=== PATIENT | male | born 1965 | race African-American/Black ===

== ENCOUNTER 2017-09-07 09:52 | Day surgery (SDC) | payer BC, OTHER ==
[2017-09-07] MEDS ORDERED: Bupivacaine 0.5% 10 ML VIAL ONE ×2 (10:32→16:26)
[2017-09-07] MEDS ORDERED: Adacel (T-DAP) 0.5 ML VIAL ONE (10:32)
[2017-09-07] MEDS ORDERED: CEFAZOLIN/Water 2 GM/20 ML SYRINGE SLOW IVP SCH ×2 (11:15→13:15)
--- NOTE | 2017-09-07 11:46 | RAD ---
LEFT INDEX FINGER THREE VIEWS: History: Injury to distal left index finger with pain. FINDINGS: There is soft tissue disruption distally. There is evidence of subtle fracture involving the tuft of the distal phalanx without evidence of displacement. IMPRESSION: Soft tissue destruction of distal index finger on the radial side. There is associated fracture of th e tuft of the distal phalanx. No significant displaced fragment seen. POS: [facility] [place]
--- NOTE | 2017-09-07 13:18 | CON ---
DATE OF CONSULTATION: 09/07/2017 CONSULTING PHYSICIAN: Dr. Ramiro Rodrgíuez HISTORY OF PRESENT ILLNESS: We were asked by the emergency room to see patient. The patient works i n the [employer] and unfortunately had his hands to close to a piece of equipment and it took off the whole volar aspect of his distal second digit. The bone appears to be intact, but only thing left is the nail and little bit of tissue. He is resting in bed in no acute distress. He does have some th robbing pain there, but it is tolerable. The emergency room updated his tetanus shot. He had no oth er injuries with this incident. PAST MEDICAL HISTORY: Positive for borderline cholesterol issues by Dr. Lang. PAST SURGICAL HISTORY: Carpal tunnel on the left hand. ALLERGIES: None. CURRENT MEDICATIONS: None. FAMILY HISTORY: Mother has diabetes. REVIEW OF SYSTEMS: He is a healthy individual. No other complaints other than that left distal tip pain. PHYSICAL EXAMINATION: GENERAL: Well-nourished male in the emergency room resting in room 1 on the [place] in no acute distr ess. Speech clear. Affect pleasant. Answers questions appropriately. He is alert and oriented x3. HEENT: Normal exam. Face symmetric, tongue midline. NECK: Supple, trachea midline. EXTREMITIES: Upper extremities; equal normal bulk and tone bilateral upper extremities with the exce ption of the second distal tip, which is obviously partially amputated on the volar side. He still h as his nail intact. Lower extremities, moving around the room okay. ASSESSMENT: Traumatic second distal tip traumatic amputation. 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 We will get him set up for the operating room today. We will get him consented, get it washed out and complete the amputation as there is no skin left to salvage his distal tip. I will explain this to the patien t and his boss again. They did understand that it would probably have to come off as they have seen these injuries in the [employer] before. His tetanus was updated. We will get him consented for surg natalie, get some antibiotics on board prior to surgery and get him fixed up. The patient is happy with the plan and they are amenable to go forth with the surgery as it was discussed earlier. I will retu rn to the patient and see if they have any further questions.
[2017-09-07] MEDS ORDERED: Ondansetron HCl/PF 4 MG/2 ML Vial IV PRN (13:21)
[2017-09-07] MEDS ORDERED: HYDROcodone/Acetaminophen 10/325 mg Tablet PO PRN ×2 (13:21)
[2017-09-07] MEDS ORDERED: Fentanyl 100 MCG/2 ML VIAL SLOW IVP PRN (13:21)
[2017-09-07] MEDS ORDERED: RENALLY ADJUST ABX FS SCH (13:30)
[2017-09-07] MEDS ORDERED: Midazolam HCl 2 mg/2 ml Vial ONE (13:53)
[2017-09-07] MEDS ORDERED: Neomycin-Polymyxin 1 ML AMP ONE (15:39)
[2017-09-07] MEDS ORDERED: HYDROmorphone 0.5 MG/0.5 ML SYRINGE ONE ×2 (15:44→16:13)
--- NOTE | 2017-09-07 18:19 | OP ---
DATE OF PROCEDURE: 09/07/2017 OPERATION: Left index finger completion amputation. PREOPERATIVE DIAGNOSIS: Partial amputation of the left index finger at the distal interphalangeal patricia int. POSTOPERATIVE DIAGNOSIS: Partial amputation of the left index finger at the distal interphalangeal joint. COMPLICATIONS: None. ESTIMATED BLOOD LOSS: Minimal. SURGEON: LUCINA LABOY MD ANESTHESIA: General plus local. INDICATIONS: Mr. Headley is a 52-year-old male who injured his finger at work. He sustained a parti al fingertip amputation. He had exposed bone and fracture. He was indicated for completion amputati on at the level of the DIP joint to allow soft tissue closure. Risks of surgery were reviewed. He e lected to proceed. DESCRIPTION OF PROCEDURE: Mr. Headley was identified in the preoperative holding area. His correct extremity was marked. He was carried to the operating room. He was positioned supine. General anes thesia was induced. A multidisciplinary time-out was performed. The left upper extremity was preppe d and draped in sterile fashion. We began the procedure with cleansing the patient's traumatic wound. We thoroughly irrigated with co pious lavage. At this point, we performed a fish-mouth incision over the tip of the distal finger. We worked down to the bony level. We excised the distal phalanx at the joint level. We then again i rrigated with copious lavage. Finally, we closed with a 4-0 nylon suture in interrupted fashion. We obtained good bone coverage. There were no complications. We placed local anesthetic for a digital block. At this point, the patient was taken to the recovery room in good condition without complica tion.
== END 2017-09-07 18:29 | disposition home or self-care (01) ==
LOC: ERS 09:52 → SDC/OP 14:01
PROVIDERS: ATTEND Orthopaedic Surgery
PROC: 0X6P0Z3 Detachment at Left Index Finger, Low, Open Approach (ICD-10-PCS; principal; 2017-09-07)
DX: S68.621A Partial traumatic transphalangeal amputation of left index finger, initial encounter (principal); W20.8XXA Other cause of strike by thrown, projected or falling object, initial encounter; Y92.65 Oil rig as the place of occurrence of the external cause; Y99.0 Civilian activity done for income or pay; Z98.890 Other specified postprocedural states
CPT/HCPCS: 90715; J1170; J2250; J3010; J3490

== ENCOUNTER 2018-11-30 22:18 | Emergency (ER) | payer BC | END 2018-11-30 22:37 | disposition home or self-care (01) | LOC: ERS 22:18 | DX: L72.9 Follicular cyst of the skin and subcutaneous tissue, unspecified (principal) | CPT/HCPCS: 99283 ==

== ENCOUNTER 2020-09-28 16:25 | Emergency (ER) | payer BC | END 2020-09-28 18:32 | disposition home or self-care (01) | LOC: ERS 16:25 | DX: M54.41 Lumbago with sciatica, right side (principal); F17.210 Nicotine dependence, cigarettes, uncomplicated; X50.0XXA Overexertion from strenuous movement or load, initial encounter; Y99.0 Civilian activity done for income or pay | CPT/HCPCS: 99283 ==

== ENCOUNTER 2025-03-04 15:24 | Emergency (ER) | payer BC ==
[2025-03-04] MEDS ORDERED: cefTRIAXone (ROCEPHIN) 500 MG VIAL ONE (15:39)
[2025-03-04 15:51] LABS: Bacteria/HPF None Seen HPF (None Seen); CAUTI Indications for Culture Dysuria,urgency,freq; Glucose, Urine (Dipstick) Normal (Negative); Leukocyte Negative Leu/uL (Negative); Protein, Urine (Dipstick) 10 mg/dL (Neg-Trace); RBC/HPF 0-3 HPF (0-3); Specific Gravity, Urine 1.023 (1.002-1.036); WBC/HPF 0-3 HPF (0-3)
[2025-03-04 16:09] LABS: Urine Culture Reflex No No
[2025-03-05 02:42] LABS: Chlam.trachomatis by PCR,Urine Not Detected (NotDetected); GC N.gonorrhoeae PCR,UrineVOID Not Detected (NotDetected)
== END 2025-03-04 16:33 | disposition home or self-care (01) ==
LOC: ERS 15:24
DX: Z20.2 Contact with and (suspected) exposure to infections with a predominantly sexual mode of transmission (principal); F17.210 Nicotine dependence, cigarettes, uncomplicated
CPT/HCPCS: 81001; 87491; 87591; 96372; 99283; J0696